=== PATIENT | female | born 1990 | race African-American/Black ===

== ENCOUNTER 2019-01-04 07:54 | Emergency (ER) | payer MEDICAID ==
[~2019-01-04] VITALS: Ht 157.5 cm; Wt 104.3 kg
[~2019-01-04 07:54] MED LIST: ALBUTEROL SULF8.5 GM INH; AZITHROMYCIN250 MG ORAL; BENADRYL25 MG ORAL; CIPRO500 MG PO; COLACE100 MG ORAL; IBUPROFEN600 MG ORAL; NKM; NORCO 5-325 TA1 EACH ORAL; PREDNISONE20 MG ORAL; PREDNISONE50 MG ORAL; VALIUM5 MG ORAL
[2019-01-04] MEDS ORDERED: VENTOLIN HFA18 GM INH (08:00)
[2019-01-04 08:16] VITALS: BP 115/68
--- NOTE | 2019-01-04 08:17 | NUR ---
ED Nurse Note:pt. came with flu like symptom, caugh no fever
[2019-01-04] MEDS ORDERED: Ipratropium 0.02% Inh Soln 2.5ml UD HHN ONE (08:30)
[2019-01-04] MEDS ORDERED: Albuterol ud Inhalation HHN ONE (08:30)
--- NOTE | 2019-01-04 08:30 | Emergency Room Report ---
History of Present Illness General Chief Complaint: Flu Like Symptoms Source: Patient, Medical Record Present Illness HPI Patient presents with complaints of cough and congestion Patient has also had runny nose Patient has history of asthma Denies any chest pain however she does feel short of breath patient reports that she was trying to obtain the solution for her nebulizer machine however was not able to Denies any vomiting or diarrhea denies any fevers or chills denies any pleurisy or recent travel Allergies: Coded Allergies: METRONIDAZOLE (Verified Allergy, Mild, 12/09/13) rashes Patient History Past Medical History: see triage record Pertinent Family History: none : 2 Reviewed Nursing Documentation: PMH: Agreed; PSxH: Agreed Nursing Documentation-PMH Past Medical History: No History, Except For Hx Asthma: Yes Review of Systems All Other Systems: negative except mentioned in HPI Physical Exam Vital Signs Date Time Temp Pulse Resp B/P (MAP) Pulse Ox O2 Delivery O2 Flow Rate FiO2 01/04/19 07:58 97.9 78 20 115/68 95 Room Air Sp02 EP Interpretation: reviewed, normal General Appearance: well appearing, no apparent distress Head: normocephalic, atraumatic Eyes: bilateral eye PERRL, bilateral eye EOMI ENT: hearing grossly normal, normal pharynx, TMs + canals normal, uvula midline Neck: full range of motion, supple, no meningismus, no bony tend Respiratory: no rhonchi, no respiratory distress, no retraction, no accessory muscle use, wheezing - Bilaterally Cardiovascular #1: normal peripheral pulses, regular rate, rhythm, no edema, no gallop, no JVD, no murmur Gastrointestinal: normal bowel sounds, non tender, soft, no mass, no organomegaly, non-distended, no guarding, no hernia, no pulsatile mass, no rebound Genitourinary: no CVA tenderness Musculoskeletal: normal inspection Neurologic: oriented x3, responsive, art preparator III-XII nml as tested, motor strength/ tone normal, sensory intact Psychiatric: mood/affect normal Skin: normal color, no rash, warm/dry, palpation normal Lymphatic: normal inspection, no adenopathy Medical Decision Making Diagnostic Impression: Primary Impression: Asthma Additional Impression: URI (upper respiratory infection) ER Course Given the patient's presentation multiple differentials are considered Including but not limited to pneumonia, URI, bronchitis Patient appears to be suffering from upper respiratory infection which has exacerbated her asthma Patient was provided with breathing treatment here and steroids continues to do better and is stable for close outpatient follow-up Last Vital Signs Date Time Temp Pulse Resp B/P (MAP) Pulse Ox O2 Delivery O2 Flow Rate FiO2 01/04/19 08:16 97.9 78 20 115/68 95 Room Air Status: improved Disposition: HOME, SELF-CARE Condition: Improved Scripts Methylprednisolone (Methylprednisolone*) 4MG Dspk 4 MG ORAL DIRECTED for 6 Days, #21 EA 0 Refills Day 1: Two tablets before breakfast, one after lunch, one after dinner, and two at bedtime. If started late in the day, take all six tablets at once or divide into two or three doses, unless otherwise directed by prescriber. Day 2: One tablet before breakfast, one after lunch, one after dinner, and two at bedtime Day 3: One tablet before breakfast, one after lunch, one after dinner, and one at bedtime Day 4: One tablet before breakfast, one after lunch, and one at bedtime Day 5: One tablet before breakfast and one at bedtime Day 6: One tablet before breakfast Prov: Magdiel Chavez DO 01/04/19 Albuterol Sulfate* (ALBUTEROL SULFATE HHN*) 2.5 Mg/3 Ml Vial.neb 2.5 MG HHN Q4H PRN for Shortness of Breath, #25 VIAL Prov: Magdiel Chavez DO 01/04/19 Additional Instructions: Patient is provided with the discharge instructions notified to follow up with primary doctor in the next 2-3 days otherwise return to the er with any worsening symptoms. Please note that this report is being documented using [employer] technology. This can lead to erroneous entry secondary to incorrect interpretation by the dictating instrument. Magdiel Chavez DO Jan 04, 2019 08:30
[2019-01-04] MEDS ORDERED: MEDROL DOSEPAK4 MG ORAL (08:52)
[2019-01-04] MEDS ORDERED: ALBUTEROL2.5 MG/3 M HHN (08:52)
[2019-01-04 09:01] VITALS: BP 115/68
--- NOTE | 2019-01-04 09:02 | NUR ---
Ed Nurse Note: pt is cleared to be DC per ER provider, pt discharge and aftercare instruction provided w/ prescription, pt education done via discussion and handout, pt advised to follow up with pcp or return to ED if sx worsen or new sx develop, pt verbalized understanding and agrees with plan, pt vss, ambulatory w/ steady gait, all belongiongs left w/ pt, wristband removed.
== END 2019-01-04 09:01 | disposition home or self-care (01) ==
LOC: EMR 08:10
DX: J45.909 Unspecified asthma, uncomplicated (principal); J06.9 Acute upper respiratory infection, unspecified; Z88.1 Allergy status to other antibiotic agents
CPT/HCPCS: 94640; 94664; 99284